=== PATIENT | male | born 1980 | race Caucasian/White ===

== ENCOUNTER 2017-08-22 08:16 | Emergency (ER) | payer MEDICAID ==
[~2017-08-22] VITALS: Ht 175.3 cm; Wt 77.1 kg
[~2017-08-22 08:16] MED LIST: PRILOSEC OTC20 MG ORAL; RANITIDINE HCL150 MG ORAL; ZOFRAN ODT4 MG ORAL
[2017-08-22 08:24] VITALS: BP 136/84
[2017-08-22] MEDS ORDERED: Lidocaine 1% Plain 30 ml INJ ONE (09:00)
[2017-08-22] MEDS ORDERED: Lidocaine 1% 10mg/ml/Epi 0.005mg/ml 30ml vial INJ ONE (09:00)
[2017-08-22] MEDS ORDERED: IBUPROFEN600 MG ORAL (09:12)
[2017-08-22] MEDS ORDERED: Norco 5mg/325mg tab ORAL ONE (09:15)
--- NOTE | 2017-08-22 09:19 | Emergency Room Report ---
History of Present Illness General Chief Complaint: General Complaint Source: Patient Present Illness HPI 37-year-old male presenting with hemorrhoid for the last 4-5 days, states it is very painful, has been using Preparation H without any relief Allergies: Coded Allergies: No Known Allergies (Unverified , 07/29/16) Patient History Past Medical History: see triage record Past Surgical History: none Pertinent Family History: none Reviewed Nursing Documentation: PMH: Agreed, PSxH: Agreed Nursing Documentation-PMH Past Medical History: No History, Except For Hx Gastrointestinal Problems: Yes - GERD. Hx hemorrhoids surgery. Review of Systems All Other Systems: negative except mentioned in HPI Physical Exam Vital Signs Date Time Temp Pulse Resp B/P (MAP) Pulse Ox O2 Delivery O2 Flow Rate FiO2 08/22/17 08:24 98.4 90 18 136/84 98 Room Air Sp02 EP Interpretation: reviewed, normal General Appearance: alert, GCS 15, mild distress Head: normocephalic, atraumatic Eyes: bilateral eye normal inspection, bilateral eye PERRL, bilateral eye EOMI ENT: normal ENT inspection, normal pharynx, normal voice, moist mucus membranes Neck: normal inspection, full range of motion, supple Respiratory: normal inspection, lungs clear, normal breath sounds, no respiratory distress, no retraction, no wheezing, speaking full sentences, chest symmetrical Cardiovascular #1: normal inspection, regular rate, rhythm, no edema, normal capillary refill Cardiovascular #2: 2+ radial (R), 2+ radial (L) Gastrointestinal: normal inspection, non tender, soft, non-distended, no guarding Rectal: other - External hemorrhoids right-sided, thrombosed,. Tender Musculoskeletal: normal inspection, back normal, normal range of motion, non- tender Neurologic: normal inspection, alert, oriented x3, responsive, motor strength/ tone normal, sensory intact, normal gait, speech normal Psychiatric: normal inspection, judgement/insight normal, memory normal Skin: normal inspection, normal color, no rash, warm/dry, well hydrated, normal turgor Procedures Incision and Drainage Incision and Drainage : Consent: Verbal Site: external hemorrhoid Blade Size: 11 I & D Procedure: betadine prep, sterile drapes applied, sterile dressing applied, gauze wick placed Wound Location: other - rectum external thrombosed hemorrhoid Wound's Depth, Shape: superficial Wound Length (cm): 2 Wound Explored: thrombosed hemorrhoids removed, elliptical incision Anesthesia: 1% Lidocaine Volume Anesthetic (ccs): 5 Patient Tolerated: Well Complications: None Medical Decision Making Diagnostic Impression: Primary Impression: Thrombosed external hemorrhoid ER Course 37-year-old male, with a thrombosed hemorrhoid DDX: Thrombosed external hemorrhoid Plan: Pain control, excision ER course: Patient feels better after excision/removal of external thrombosed hemorrhoid Disposition: Patient is to be discharged to home. Prescriptions given are Motrin Please note that this Emergency Department Report was dictated using WealthEnginedistrict service manager technology software, occasionally this can lead to erroneous entry secondary to interpretation by the dictation equipment Last Vital Signs Date Time Temp Pulse Resp B/P (MAP) Pulse Ox O2 Delivery O2 Flow Rate FiO2 08/22/17 08:24 98.4 18 136/84 98 Room Air 08/22/17 08:24 90 Disposition: HOME, SELF-CARE Condition: Improved Scripts Ibuprofen* (MOTRIN*) 600 Mg Tablet 600 MG ORAL Q8H Y for For Pain, #30 TAB 0 Refills Prov: Benjamin Schroeder M.D. 08/22/17 Patient Instructions: Hemorrhoids, [id number] Benjamin Schroeder M.D. Aug 22, 2017 09:19
[2017-08-22 09:22] VITALS: BP 136/84
== END 2017-08-22 09:23 | disposition home or self-care (01) ==
LOC: EMR 08:45
DX: K64.5 Perianal venous thrombosis (principal); K21.9 Gastro-esophageal reflux disease without esophagitis
CPT/HCPCS: 10060; 99283

== ENCOUNTER 2017-09-08 21:01 | Emergency (ER) | payer MEDICAID ==
[~2017-09-08] VITALS: Ht 175.3 cm; Wt 77.1 kg
[~2017-09-08 21:01] MED LIST changes: +IBUPROFEN600 MG ORAL
[2017-09-08] MEDS ORDERED: AMERICAINE28 G1 TP (21:33)
[2017-09-08] MEDS ORDERED: COLACE100 MG ORAL (21:33)
[2017-09-08 21:35] VITALS: BP 144/89
[2017-09-08] MEDS ORDERED: RECTIV30 GM RC (21:41)
[2017-09-08 22:00] VITALS: BP 144/89
--- NOTE | 2017-09-08 22:23 | Emergency Room Report ---
History of Present Illness General Chief Complaint: General Complaint Source: Patient Present Illness HPI 37-year-old male, with history of hemorrhoids, presenting with left-sided hemorrhoid that is very painful for 2 days. He has a history of external hemorrhoids excision. No other complaints Allergies: Coded Allergies: No Known Allergies (Unverified , 07/29/16) Patient History Past Medical History: see triage record Past Surgical History: none Pertinent Family History: none Reviewed Nursing Documentation: PMH: Agreed, PSxH: Agreed Nursing Documentation-PMH Hx Gastrointestinal Problems: Yes - GERD. Hx hemorrhoids surgery. Review of Systems All Other Systems: negative except mentioned in HPI Physical Exam Vital Signs Date Time Temp Pulse Resp B/P (MAP) Pulse Ox O2 Delivery O2 Flow Rate FiO2 09/08/17 21:19 98.8 88 16 144/89 99 Room Air Sp02 EP Interpretation: reviewed, normal General Appearance: alert, GCS 15, mild distress Head: normocephalic, atraumatic Eyes: bilateral eye normal inspection, bilateral eye PERRL, bilateral eye EOMI ENT: normal ENT inspection, normal pharynx, normal voice, moist mucus membranes Neck: normal inspection, full range of motion, supple Respiratory: normal inspection, lungs clear, normal breath sounds, no respiratory distress, no retraction, no wheezing, speaking full sentences, chest symmetrical Cardiovascular #1: normal inspection, regular rate, rhythm, no edema, normal capillary refill Cardiovascular #2: 2+ radial (R), 2+ radial (L) Gastrointestinal: normal inspection, non tender, soft, non-distended, no guarding Rectal: other - +L sided thrombosed hemorrhoid Musculoskeletal: normal inspection, back normal, normal range of motion, non- tender Neurologic: normal inspection, alert, oriented x3, responsive, motor strength/ tone normal, sensory intact, normal gait, speech normal Psychiatric: normal inspection, judgement/insight normal, memory normal Skin: normal inspection, normal color, no rash, warm/dry, well hydrated, normal turgor Procedures Additional Procedure Procedure Narrative Procedure: Left-sided thrombosed hemorrhoid removal Area cleansed with chlorhexidine 1% lidocaine used, 5cc An elliptical incision was made, thrombosed hemorrhoid was removed, patient tolerated procedure well Medical Decision Making Diagnostic Impression: Primary Impression: Thrombosed external hemorrhoid ER Course 37-year-old male with left-sided thrombosed hemorrhoid DDX: Thrombosed hemorrhoid Plan: Excision ER course: Feels better after excision Disposition: Patient is to be discharged to home. Prescriptions given are benzocaine (rectal), colace Patient is instructed to follow up with their primary care doctor within 5 days. Please note that this Emergency Department Report was dictated using Ziarcoradioisotope technologist technology software, occasionally this can lead to erroneous entry secondary to interpretation by the dictation equipment Last Vital Signs Date Time Temp Pulse Resp B/P (MAP) Pulse Ox O2 Delivery O2 Flow Rate FiO2 09/08/17 22:00 98.8 88 16 144/89 99 Room Air Disposition: HOME, SELF-CARE Condition: Improved Scripts Nitroglycerin (RECTIV) 30 Gm Oint...g. 30 GM RC BID for 7 Days, #1 TUBE 0 Refills Prov: Benjamin Schroeder M.D. 09/08/17 Docusate Sodium* (COLACE*) 100 Mg Capsule 100 MG ORAL THREE TIMES A DAY for 7 Days, #21 CAP 0 Refills Prov: Benjamin Schroeder M.D. 09/08/17 Benzocaine (AMERICAINE) 28 Gm Oint...g. 28 GM TP six times a day for 7 Days, #1 TUBE 0 Refills Prov: Benjamin Schroeder M.D. 09/08/17 Referrals: [facility],REFERRING (PCP) Patient Instructions: Surgical Procedures for Hemorrhoids, Care After Benjamin Schroeder M.D. Sep 08, 2017 22:22
== END 2017-09-08 22:00 | disposition home or self-care (01) ==
LOC: EMR 21:41
DX: K64.5 Perianal venous thrombosis (principal); K21.9 Gastro-esophageal reflux disease without esophagitis
CPT/HCPCS: 46083; 99283; Z7502

== ENCOUNTER 2017-11-27 14:59 | Emergency (ER) | payer MEDICAID ==
[~2017-11-27] VITALS: Ht 175.3 cm; Wt 81.6 kg
[~2017-11-27 14:59] MED LIST changes: +AMERICAINE28 G1 TP; +COLACE100 MG ORAL; +RECTIV30 GM RC
[2017-11-27] MEDS ORDERED: NAPROXEN500 M2 ORAL (15:09)
[2017-11-27 15:15] VITALS: BP 123/75
--- NOTE | 2017-11-27 15:30 | Emergency Room Report ---
History of Present Illness General Chief Complaint: Back Pain-No Injury Source: Patient Present Illness HPI 37 yo male patient presents to ER complaining of back pain. Reports pain radiates down right leg. Reports walks with cane. Reports MRI performed and showed herniated discs. Reports taking Naproxen for pain and topical patch medication. Reports patches fall off and do not work well. Reports "does not know cause of injury", states may have been from fall in May, denies followup with physician at that time or imaging performed. Reports imaging performed in October when pain increased. Denies recent injury. Denies fever, chest pain, SOB, rash. Denies bowel or bladder incontinence. Denies hx of surgery. Denies hx of cancer or IVDA. Denies abdominal pain. Allergies: Coded Allergies: No Known Allergies (Unverified , 07/29/16) Patient History Past Medical History: see triage record Reviewed Nursing Documentation: PMH: Agreed; PSxH: Agreed Nursing Documentation-PMH Past Medical History: No History, Except For Hx Gastrointestinal Problems: Yes - GERD. Hx hemorrhoids surgery. Review of Systems All Other Systems: negative except mentioned in HPI Physical Exam Vital Signs Date Time Temp Pulse Resp B/P (MAP) Pulse Ox O2 Delivery O2 Flow Rate FiO2 11/27/17 15:05 98.2 115 20 123/75 98 Room Air 98.2 Sp02 EP Interpretation: reviewed, normal General Appearance: well appearing, no apparent distress, alert, GCS 15, non- toxic Head: normocephalic, atraumatic Eyes: bilateral eye normal inspection, bilateral eye PERRL ENT: hearing grossly normal, normal pharynx, no angioedema, normal voice, uvula midline, moist mucus membranes Neck: full range of motion Respiratory: lungs clear, normal breath sounds, no rhonchi, no respiratory distress, no accessory muscle use, no wheezing, speaking full sentences Cardiovascular #1: regular rate, rhythm, no edema Gastrointestinal: non tender, soft, no mass, non-distended, no guarding, no rebound Musculoskeletal: back normal, digits/nails normal, normal range of motion, non- tender, no calf tenderness, pelvis stable, Sherrie's Sign negative, other - no bony stepoff, no TTP, no skin changes Neurologic: alert, oriented x3, responsive, motor strength/tone normal, sensory intact, other - SLR positive right leg, SLR negative left leg, no motor weakness Psychiatric: mood/affect normal Reflexes: 3+ knee (R), 3+ knee (L) Skin: no rash Lymphatic: no adenopathy Medical Decision Making PA Attestation Dr. King is my supervising Physician whom patient management has been discussed with. Diagnostic Impression: Primary Impression: Back pain Additional Impression: Sciatica ER Course Pt presents to ED c/o back pain. No recent injury. DDX considered but are not limited to sprain, strain, cauda equine, epidural abscess, AAA, spinal cord compression, herniated disc. Low suspicion for cauda equina, no bowel or bladder incontinence or retention, muscle strength intact, DTR knees 3+ bilaterally. No fever, nontoxic appearing, no radiation of pain, low suspicion for epidural mass. No calf swelling, chest pain, SOB, hemoptysis, low suspicion for DVT per Well's criteria. Had MRI and x-rays recently performed, no injury since that time. Does not require repeat imaging at this time. VITAL SIGNS are WNL, patient is afebrile. Pulse elevated, will recheck. Ordered pain medication. CURES report shows 2 day supply of [place] on 10/28, none since that time, Butrans patch on 11/17. Patient reports patches fall off and has not used them. ER COURSE: Will provide single Gran[place] in ER for pain relief. Patient reports no driving home , lives nearby will walk or take Uber. Patient provided with pain meds, lidocaine patch and Granville. Will not provide patient with opioid medication prescription to go home with. Patient instructed to followup with PCP or pain management for pain medication and treatment of sciatica. Patient reports feeling better following administration of pain medication. Able to ambulate independently without difficulty. Vitals WNL on recheck. DISCHARGE: -Rx provided for Tylenol -Rx provided for Lidocaine patch -Rx provided for Robaxin. May cause drowsiness, do not take when drinking, driving or operating heavy machinery. At this time pt. is stable for d/c to home. At this time patient is resting comfortably, in no acute distress, nontoxic appearing, smiling and talking without difficulty. Will provide printed patient care instructions, and any necessary prescriptions. Patient instructed to follow with primary care provider for further treatment and referral as needed. Care plan and follow up instructions have been discussed with the patient prior to discharge. Patient reports understanding and agreement to treatment plan. Patient questions asked and answered. ER precautions given, patient instructed to return to ER immediately for any new or worsening of symptoms. Last Vital Signs Date Time Temp Pulse Resp B/P (MAP) Pulse Ox O2 Delivery O2 Flow Rate FiO2 11/27/17 15:15 98.2 68 20 123/75 98 Room Air 98.2 Status: improved Disposition: HOME, SELF-CARE Condition: Stable Scripts Methocarbamol* (ROBAXIN*) 500 Mg Tablet 500 MG PO TID, #10 TAB 0 Refills Prov: Luis Choudhary 11/27/17 Acetaminophen* (TYLENOL EXTRA STRENGTH*) 500 Mg Tablet 500 MG ORAL Q8H PRN for Prn Headache/Temp > 101, #30 TAB 0 Refills Prov: Luis Choudhary 11/27/17 Lidocaine (Lidocaine) 1 Each Adh..patch 700 MG TP DAILY for 5 Days, #5 PATCH Prov: Luis Choudhary 11/27/17 Patient Instructions: Back Pain, Adult, Sciatica Additional Instructions: Followup with primary care provider in 3 -5 days to discuss pain treatment. Followup with pain management. Muscle relaxant may cause drowsiness, do not take while drinking, driving, or operating heavy machinery. Take medications as directed. Patient questions asked and answered. ER precautions given, patient instructed to return to ER immediately for any new or worsening of symptoms including but not limited to chest pain, SOB, abdominal pain, blood in stool or urine, loss of sensation of extremities. Luis Choudhary Nov 27, 2017 15:30
[2017-11-27] MEDS ORDERED: Ketorolac 30mg Inj IM ONE (16:00)
[2017-11-27] MEDS ORDERED: Norco 5mg/325mg tab ORAL ONE (16:00)
[2017-11-27] MEDS ORDERED: ROBAXIN500 MG PO (16:00)
[2017-11-27] MEDS ORDERED: LIDOCAINE700 M1 TP (16:00)
[2017-11-27] MEDS ORDERED: TYLENOL EXTRA500 MG ORAL (16:00)
[2017-11-27 16:49] VITALS: BP 123/75
== END 2017-11-27 16:30 | disposition home or self-care (01) ==
LOC: EMR 16:20
DX: M54.9 Dorsalgia, unspecified (principal); M54.31 Sciatica, right side
CPT/HCPCS: 96372; 99284; J1885

== ENCOUNTER 2018-04-12 13:37 | Emergency (ER) | payer MEDICAID ==
[~2018-04-12] VITALS: Ht 175.3 cm; Wt 72.6 kg
[~2018-04-12 13:37] MED LIST changes: +LIDOCAINE700 M1 TP; +NAPROXEN500 M2 ORAL; +ROBAXIN500 MG PO; +TYLENOL EXTRA500 MG ORAL
[2018-04-12] MEDS ORDERED: Lidocaine 1% MPF 10mg/ml 5ml IM ONE (14:15)
--- NOTE | 2018-04-12 14:15 | Emergency Room Report ---
History of Present Illness General Chief Complaint: General Complaint Source: Patient (Luis Choudhary) Present Illness HPI 38-year-old male patient presents to ER complaining of hemorrhoid 1 day. Reports that he woke up this morning and felt a palpable hemorrhoid. Reports history of hemorrhoids, [place] [facility] [place] [facility] to have hemorrhoid excised. Reports history of hemorrhoid surgery years ago. Has not followed up with primary care provider since then. Denies blood in stool. denies abdominal pain. Denies other acute symptoms at this time. Reports recent history of back surgery. (Luis Choudhary) Allergies: Coded Allergies: No Known Allergies (Unverified , 07/29/16) Patient History Past Medical History: see triage record Reviewed Nursing Documentation: PMH: Agreed; PSxH: Agreed (Luis Choudhary) Nursing Documentation-PMH Past Medical History: No History, Except For Hx Gastrointestinal Problems: Yes - GERD. Hx hemorrhoids surgery. (Luis Choudhary) Review of Systems All Other Systems: negative except mentioned in HPI (Luis Choudhary) Physical Exam Vital Signs Date Time Temp Pulse Resp B/P (MAP) Pulse Ox O2 Delivery O2 Flow Rate FiO2 04/12/18 13:50 98.3 97 18 135/91 97 Room Air 98.2 Sp02 EP Interpretation: reviewed, normal General Appearance: well appearing, no apparent distress, alert, GCS 15, non- toxic Head: normocephalic, atraumatic Eyes: bilateral eye normal inspection, bilateral eye PERRL ENT: hearing grossly normal, normal pharynx, no angioedema, normal voice, uvula midline, moist mucus membranes Neck: full range of motion Respiratory: lungs clear, normal breath sounds, no rhonchi, no respiratory distress, no accessory muscle use, no wheezing, speaking full sentences Cardiovascular #1: regular rate, rhythm, no edema Gastrointestinal: non tender, soft, no mass, non-distended, no guarding, no rebound Rectal: normal rectal tone, hemorrhoids - 1 cm thrombosed hemorrhoid at 3 o' clock position, tender to palpation, other - skin tag at 8 o'clock position Musculoskeletal: back normal, digits/nails normal, gait/station normal, normal range of motion, non-tender Neurologic: alert, oriented x3, responsive, motor strength/tone normal, sensory intact Psychiatric: mood/affect normal Skin: no rash (Luis Choudhary) Procedures Incision and Drainage Incision and Drainage : Consent: Verbal Site: rectum Blade Size: 11 I & D Procedure: betadine prep, sterile drapes applied, sterile dressing applied Wound Location: other - rectal hemorrhoid Wound Length (cm): 1 Wound Explored: contaminated - clot removed Irrigated w/ Saline (ccs): 10 Anesthesia: 1% Lidocaine Volume Anesthetic (ccs): 2 Splint Applied?: No Sling Applied?: No Patient Tolerated: Well Complications: None (Luis Choudhary) Medical Decision Making PA Attestation Dr. Ornelas is my supervising Physician whom patient management has been discussed with. (Luis Choudhary) PA Attestation I also evaluated Mr. Rodriguez alongside my colleague Denilson Choudhary PA-C. He has thrombosed hemorrhoid. I supervised and assisted with incision and excision of thrombosis. Patient tolerated the procedure well. I recommended analgesia and prescription for colace. (IRMA ORNELAS) Diagnostic Impression: Primary Impression: Thrombosed external hemorrhoid ER Course Pt. presents to the ED c/o blood on toilet paper and constipation. Ddx considered but are not limited to constipation, anal tag, anal fissure, hemorrhoids. Vital signs: are WNL, pt. is afebrile ER COURSE: physical exam shows thrombosed hemorrhoid, tender to palpation Will perform excisional procedure. See procedure note. Field block with lidocaine, small eliptical incision made, thrombosed clot removed, patient tolerated procedure well, wound dressed with gauze. procedures supervised by Dr. Ornelas. Applied gauze to affected area, advised patient on sitz baths. Wash area thoroughly following bowel movements. followup with primary care and discuss referral to GI and surgery as needed. Provide Colace for constipation. Instructed patient to drink plenty of fluids. provided with pain medication in the ER, will monitor patient, patient did not drive to ER, [place] for discharge to home. DISCHARGE: Rx provided for Colace, 200mg/day PO BID x7 days. Rx provided for Motrin At this time pt is stable for d/c to home. Patient is resting comfortably, in no acute distress, nontoxic appearing, talking without difficulty. Patient to take medications as instructed Will provide with patient care instructions and any necessary prescriptions. Care plan and follow-up instructions provided. Patient instructed to follow-up with primary care provider in 3 - 5 days. Patient questions asked and answered. Patient reports understanding and agreement to treatment plan. ER precautions given. Patient instructed to return to ER immediately for any new or worsening of symptoms including but not limited to increasing SOB, persistent fever. - Please note that this Emergency Department Report was dictated using DirectRMmultiple cut off saw operator technology software, occasionally this can lead to erroneous entry secondary to interpretation by the dictation equipment. (Luis Choudhary) Last Vital Signs Date Time Temp Pulse Resp B/P (MAP) Pulse Ox O2 Delivery O2 Flow Rate FiO2 04/12/18 13:50 98.3 97 18 135/91 97 Room Air 98.2 (Luis Choudhary) Disposition: HOME, SELF-CARE Condition: Stable Scripts Ibuprofen* (MOTRIN*) 600 Mg Tablet 600 MG ORAL Q8H PRN for For Pain, #30 TAB 0 Refills Prov: Luis Choudhary 04/12/18 Docusate Sodium* (COLACE*) 100 Mg Capsule 100 MG ORAL THREE TIMES A DAY for 7 Days, #21 CAP Prov: Luis Choudhary 04/12/18 Patient Instructions: Hemorrhoids, [id number] Additional Instructions: Followup with primary care provider in 3 -5 days. Followup with GI specialist and/or surgeon. Advised patient on Sitz baths, wash area thoroughly following bowel movements, apply gauze to area. Take medications as directed. Patient questions asked and answered. ER precautions given, patient instructed to return to ER immediately for any new or worsening of symptoms. Luis Choudhary Apr 12, 2018 14:14 IRMA ORNELAS Apr 12, 2018 14:56
[2018-04-12 14:21] VITALS: BP 135/91
[2018-04-12] MEDS ORDERED: COLACE100 MG ORAL (14:43)
[2018-04-12] MEDS ORDERED: IBUPROFEN600 MG ORAL (14:43)
[2018-04-12] MEDS ORDERED: oxyCODONE HCL/Acetaminophen 5/325mg ORAL ONE (14:45)
[2018-04-12 14:54] VITALS: BP 135/91
== END 2018-04-12 14:54 | disposition home or self-care (01) ==
LOC: EMR 14:23
DX: K64.5 Perianal venous thrombosis (principal)
CPT/HCPCS: 46083; 99283; Z7502

== ENCOUNTER 2019-01-29 11:34 | Emergency (ER) | payer MEDICAID ==
[~2019-01-29] VITALS: Ht 175.3 cm; Wt 79.4 kg
[2019-01-29 11:52] VITALS: BP 135/83
--- NOTE | 2019-01-29 11:56 | NUR ---
ED Nurse Note: pt c/o hemroidal pain since yesterday awaiting ermd eval.
[2019-01-29] MEDS ORDERED: PAXIL10 MG ORAL (11:58)
[2019-01-29] MEDS ORDERED: FAMOTIDINE20 MG ORAL (11:58)
[2019-01-29] MEDS ORDERED: Lidocaine 1% Plain 30 ml INJ ONE (12:15)
--- NOTE | 2019-01-29 12:41 | Emergency Room Report ---
History of Present Illness General Chief Complaint: Pain Source: Patient Present Illness HPI 38-year-old male with history of recurrent hemorrhoid. And chapin cysts, here complaining of 10 out of 10 throbbing pain in the buttocks area x1 day. denies bleeding, straining, constipation. Denies fever, chills, urinary and bowel incontinence. Denies saddle paresthesia, pain radiation, has not taken any medication for pain. Patient has a visit coming up with his primary care physician next week. Chest pain, S OB, palpitation, and all other associated symptoms. Allergies: Coded Allergies: No Known Allergies (Unverified , 07/29/16) Patient History Past Medical History: see triage record Past Surgical History: unable to obtain Pertinent Family History: none Immunizations: UTD Reviewed Nursing Documentation: PMH: Agreed; PSxH: Agreed Nursing Documentation-PMH Hx Gastrointestinal Problems: Yes - GERD. Hx hemorrhoids surgery. Review of Systems All Other Systems: negative except mentioned in HPI Physical Exam Vital Signs Date Time Temp Pulse Resp B/P (MAP) Pulse Ox O2 Delivery O2 Flow Rate FiO2 01/29/19 11:44 99.7 106 20 135/83 (100) 99 Room Air Sp02 EP Interpretation: reviewed, normal General Appearance: normal inspection, well appearing, no apparent distress Head: normocephalic, atraumatic Eyes: bilateral eye normal inspection, bilateral eye PERRL ENT: normal ENT inspection, hearing grossly normal Neck: normal inspection, full range of motion, supple Respiratory: normal inspection, chest non-tender, lungs clear Cardiovascular #1: normal inspection, normal peripheral pulses, regular rate, rhythm, no edema Gastrointestinal: normal inspection, non tender, soft Rectal: hemorrhoids - thrombosed hemorrohid, mass - chapin cyst, tenderness Genitourinary: no CVA tenderness Musculoskeletal: normal inspection, back normal, digits/nails normal, gait/ station normal Neurologic: normal inspection, alert, oriented x3 Psychiatric: normal inspection, judgement/insight normal Skin: normal color, no rash, warm/dry, rash - chapin cyst Lymphatic: normal inspection, no adenopathy Procedures Incision and Drainage Incision and Drainage : Consent: Verbal Blade Size: 11 I & D Procedure: betadine prep Wound Location: pelvis Wound's Depth, Shape: superficial Wound Explored: clean Anesthesia: 1% Lidocaine Volume Anesthetic (ccs): 10 Splint Applied?: Yes Sling Applied?: No Patient Tolerated: Well Complications: None Medical Decision Making PA Attestation All my diagnosis and treatment plans were reviewed ad discussed with my supervising physician Dr. Carnes Diagnostic Impression: Primary Impression: Pilonidal cyst with abscess Additional Impression: Thrombosed external hemorrhoid ER Course 38-year-old male with history of recurrent hemorrhoid. And chapin cysts, here complaining of 10 out of 10 throbbing pain in the buttocks area x1 day. denies bleeding, straining, constipation. Denies fever, chills, urinary and bowel incontinence. Denies saddle paresthesia, pain radiation, has not taken any medication for pain. Patient has a visit coming up with his primary care physician next week. Chest pain, S OB, palpitation, and all other associated symptoms. Incision and drainage of abscess was done without complications, lidocaine was applied for numbing, patient was put on antibiotics upon discharge and nonadhesive dressing was applied, pt advised to follow up with pcp or go to urgent care for wound check in 2-4days. if fever, chills, severe pain at site of I and D, return to the ER Ddx considered but are not limited to: chapin cyst, thrombosed hemorrohid, rectal fistula, Vital signs: are WNL, pt. is afebrile H&PE are most consistent with: chapin cyst, thrombosed hemorrohid ORDERS: toradol 30mg, lidocaine, keflex, naproxen ED INTERVENTIONS: toradol 30mg IM, I and D , tylenol 3 DISCHARGE: At this time pt. is stable for d/c to home. Will provide printed patient care instructions, and any necessary prescriptions. Care plan and follow up instructions have been discussed with the patient prior to discharge. Last Vital Signs Date Time Temp Pulse Resp B/P (MAP) Pulse Ox O2 Delivery O2 Flow Rate FiO2 01/29/19 11:52 99.7 20 135/83 99 Room Air 01/29/19 11:44 106 Disposition: HOME, SELF-CARE Condition: Stable Scripts Naproxen* (NAPROXEN*) 500 Mg Tablet 500 MG ORAL TWICE A DAY, #30 TAB Prov: Seven Hernandez 01/29/19 Cephalexin* (KEFLEX*) 500 Mg Capsule 500 MG ORAL EVERY 6 HOURS for 7 Days, #28 CAP Prov: Seven Hernandez 01/29/19 Patient Instructions: Hemorrhoids, [id number], Incision and Drainage of a Pilonidal Cyst, Care After Additional Instructions: follow up with The primary care physician for follow-up and 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
[2019-01-29] MEDS ORDERED: Ketorolac 30mg Inj IM ONE (12:45)
[2019-01-29] MEDS ORDERED: NAPROXEN500 M2 ORAL (13:13)
[2019-01-29] MEDS ORDERED: CEPHALEXIN500 MG ORAL (13:13)
[2019-01-29] MEDS ORDERED: Tylenol #3 tab (300mg/30mg) ORAL ONE (13:15)
[2019-01-29 13:44] VITALS: BP 137/85
--- NOTE | 2019-01-29 13:47 | NUR ---
ED Nurse Note: i&D done by PA . Irrigation and dressing done pt given aci and script verbalized understanding ambulated out of er with strong and steady gait.
== END 2019-01-29 13:48 | disposition home or self-care (01) ==
LOC: EMR 12:11
DX: L05.01 Pilonidal cyst with abscess (principal); K64.5 Perianal venous thrombosis; K21.9 Gastro-esophageal reflux disease without esophagitis
CPT/HCPCS: 10060; 96372; 99283; J1885; J2001

== ENCOUNTER 2019-02-01 15:45 | Emergency (ER) | payer MEDICAID ==
[~2019-02-01] VITALS: Ht 175.3 cm; Wt 79.4 kg
[~2019-02-01 15:45] MED LIST changes: +CEPHALEXIN500 MG ORAL; +FAMOTIDINE20 MG ORAL; +PAXIL10 MG ORAL
--- NOTE | 2019-02-01 16:05 | NUR ---
ED Nurse Note: PT WALKED IN TO ER TODAY FROM HOME. AOX4. PT C/O RECTAL PAIN, 8/10, BLEEDING, AND DIARRHEA X 3 DAYS AGO. PT IS S/P I&D OF PILONIDAL CYST. ON ASSESSMENT, NO ACTIVE BLEEDING NOTED. NO SIGNS OF INFECTION. ACTIVE BOWEL SOUNDS IN ALL QUADRANTS. ABDOMEN NONDISTENDED AND NONTENDER TO PALPATION. PT DENIES NAUSEA OR VOMITING. PT DENIES ABDOMINAL PAIN.
[2019-02-01 16:08] VITALS: BP 142/82
[2019-02-01] MEDS ORDERED: Ketorolac 30mg Inj IV ONE (16:15)
--- NOTE | 2019-02-01 16:45 | Emergency Room Report ---
History of Present Illness General Chief Complaint: Pain Source: Patient Present Illness HPI 38-year-old male with history of recurrent hemorrhoids here following up on a thrombosed hemorrhoid that was drained and a pile of cyst was drained 3 days ago at [facility]. Patient was discharged with Keflex and naproxen patient reports that he started having increased diarrhea after he started Keflex. Also complaining of minimal pain in the buttocks area. Eyes fever, chills, drainage, blood in his stool. Patient has not made an appointment with his primary care provider. Pain, S OB, palpitation, nausea vomiting, abdominal pain. She is currently rating the pain in the affected area 5 out of 10, without radiation denying tingling numbness, denying saddle paresthesia Allergies: Coded Allergies: No Known Allergies (Unverified , 07/29/16) Patient History Past Medical History: see triage record Past Surgical History: unable to obtain Pertinent Family History: none Immunizations: UTD Reviewed Nursing Documentation: PMH: Agreed; PSxH: Agreed Nursing Documentation-PMH Past Medical History: No History, Except For Hx Gastrointestinal Problems: Yes - GERD. Hx hemorrhoids surgery. Review of Systems All Other Systems: negative except mentioned in HPI Physical Exam Vital Signs Date Time Temp Pulse Resp B/P (MAP) Pulse Ox O2 Delivery O2 Flow Rate FiO2 02/01/19 15:51 99.0 100 20 145/87 (106) 99 Room Air Sp02 EP Interpretation: reviewed, normal General Appearance: normal inspection, well appearing Head: normocephalic, atraumatic Eyes: bilateral eye normal inspection, bilateral eye PERRL ENT: normal ENT inspection, no angioedema Neck: normal inspection, full range of motion, supple Respiratory: normal inspection, chest non-tender, lungs clear, no wheezing Cardiovascular #1: normal inspection, normal peripheral pulses, no edema, no murmur Gastrointestinal: normal inspection, non tender, soft Rectal: other - drained and healing thrombosed hemorrhoid Genitourinary: no CVA tenderness Musculoskeletal: normal inspection, back normal Neurologic: normal inspection, alert Psychiatric: normal inspection, judgement/insight normal Skin: normal inspection Lymphatic: normal inspection, no adenopathy Medical Decision Making PA Attestation All my diagnosis and treatment plans were reviewed ad discussed with my supervising physician Dr. Munoz Diagnostic Impression: Primary Impression: Thrombosed external hemorrhoid Additional Impressions: Encounter for wound care Acute diarrhea ER Course 38-year-old male with history of recurrent hemorrhoids here following up on a thrombosed hemorrhoid that was drained and a pile of cyst was drained 3 days ago at [facility]. Patient was discharged with Keflex and naproxen patient reports that he started having increased diarrhea after he started Keflex. Also complaining of minimal pain in the buttocks area. Eyes fever, chills, drainage, blood in his stool. Patient has not made an appointment with his primary care provider. Pain, S OB, palpitation, nausea vomiting, abdominal pain. She is currently rating the pain in the affected area 5 out of 10, without radiation denying tingling numbness, denying saddle paresthesia Ddx considered but are not limited to:bleeding hemorrhoid, infected cyst, diarrhea secondary to antibiotic, healing thrombosed hemorrhoid Vital signs: are WNL, pt. is afebrile H&PE are most consistent with: Healing thrombosed hemorrhoid post drainage, diarrhea secondary to antibiotics ORDERS: Toradol 30 mg IM, 500 mL of NS bolus, Bactrim DS instead of Keflex, Tylenol 3 ED INTERVENTIONS: Toradol 30 mg IM, 500 mL of NS bolus DISCHARGE: At this time pt. is stable for d/c to home. Will provide printed patient care instructions, and any necessary prescriptions. Care plan and follow up instructions have been discussed with the patient prior to discharge. Follow-up with garden labourer due to recurrences of hemorrhoid continue with naproxen cures was done and a prescription of hydrocodone was given 5 days ago Last Vital Signs Date Time Temp Pulse Resp B/P (MAP) Pulse Ox O2 Delivery O2 Flow Rate FiO2 02/01/19 16:08 98.8 94 18 142/82 100 Room Air Disposition: HOME, SELF-CARE Condition: Stable Scripts Acetaminophen With Codeine (T#3) (TYLENOL #3 TAB*) Y Tab 1 TAB ORAL DAILY PRN for For Pain for 3 Days, #3 TAB Prov: Seven Hernandez 02/01/19 Loperamide Hcl/Simethicone (IMODIUM MULTI-SYMPTOM REL CPLT) 1 Each Tablet 1 EACH PO DAILY for 3 Days, #3 TAB Prov: Seven Hernandez 6/4/19 Trimethoprim/Sulfamethoxazole (Bactrim Ds Tablet) 1 Each Tablet 1 TAB ORAL TWICE A DAY for 7 Days, #14 TAB Prov: Seven Hernandez 02/01/19 Patient Instructions: Food Choices to Help Relieve Diarrhea, Adult, Hemorrhoids , [id number], Wound Care Additional Instructions: Follow-up with your primary care provider for referral to garden labourer due to your recurrent hemorrhoid the drainage has completed and the wound is healing no sign of erythema or cellulitis noted I change your antibiotic due to your increased diarrhea secondary to Keflex Seven Hernandez Feb 01, 2019 16:45
[2019-02-01] MEDS ORDERED: IMODIUM MULTI-1 EACH PO (16:52)
[2019-02-01] MEDS ORDERED: ACETAMINOPHEN-1 EAC1 ORAL (16:52)
[2019-02-01] MEDS ORDERED: BACTRIM-DS1 EA ORAL (16:52)
--- NOTE | 2019-02-01 16:56 | NUR ---
ED Nurse Note: PT LAYING PEACEFULLY IN BED IN NAD. AOX4. DISCHARGE PAPERWORK EXPLAINED TO PT. PT VERBALIZES UNDERSTANDING AND ALL QUESTIONS ANSWERED. DISCHARGE PAPERWORK GIVEN TO PT, IV AND ID WRISTBAND REMOVED. PT WALKED OUT OF ER WITH STEADY GAIT AND ALL BELONGINGS.
[2019-02-01 16:57] VITALS: BP 134/78
== END 2019-02-01 17:00 | disposition home or self-care (01) ==
LOC: EMR 17:00
DX: K64.5 Perianal venous thrombosis (principal); R19.7 Diarrhea, unspecified; K21.9 Gastro-esophageal reflux disease without esophagitis
CPT/HCPCS: 96374; 99284; J1885; J7040

== ENCOUNTER 2019-04-12 18:57 | Emergency (ER) | payer MEDICAID ==
[~2019-04-12] VITALS: Ht 175.3 cm; Wt 77.1 kg
[~2019-04-12 18:57] MED LIST changes: +ACETAMINOPHEN-1 EAC1 ORAL; +BACTRIM-DS1 EA ORAL; +IMODIUM MULTI-1 EACH PO
--- NOTE | 2019-04-12 19:15 | NUR ---
ED Nurse Note: Recieved pt from home with c/o "spider bite" to back of right forearm, small yellow scab wound noted with redness and mild swelling, pt states is very painful to touch, noted x 2 days, denies fevers, vomiting, or any other complaints or discomforts.
[2019-04-12] MEDS ORDERED: Neosporin Oint Ud Pkt TOPIC ONE (19:45)
[2019-04-12] MEDS ORDERED: HYDROcodone/Acetamin 5/325 tab ORAL ONE (19:45)
--- NOTE | 2019-04-12 19:52 | Emergency Room Report ---
History of Present Illness General Chief Complaint: Upper Extremity Injury Present Illness HPI 39 YO presents to the emergency department complaining of localized 7/10 in severity pain, tenderness, swelling , erythema and insect bite to the posterior right forearm that is been progressive x2 days. Patient states he is up-to- date with his tetanus vaccinations. Patient reports that he felt initial insect bite and he stated he had what looked like a small blister that was very itchy for the first day and half. Patient reports that the blister later popped and he began having scabbing but he states that he has had progression of pain and tenderness as well as swelling of the right forearm. Pt. denies fevers, chills or swollen tender lymph nodes. Denies lesions/rashes elsewhere on the body. Denies new medications or body washes or creams. Denies swelling of the lips, tongue , throat or airway. Denies wheezing, or shortness of breath. Denies recent travel, recent illness or ill contacts. denies blisters , oral lesions, or sloughing of the skin Allergies: Coded Allergies: No Known Allergies (Unverified , 07/29/16) Patient History Past Medical History: see triage record Past Surgical History: none Pertinent Family History: none Immunizations: UTD Reviewed Nursing Documentation: PMH: Agreed; PSxH: Agreed Nursing Documentation-PMH Hx Gastrointestinal Problems: Yes - GERD. Hx hemorrhoids surgery. Review of Systems All Other Systems: negative except mentioned in HPI Physical Exam Vital Signs Date Time Temp Pulse Resp B/P (MAP) Pulse Ox O2 Delivery O2 Flow Rate FiO2 04/12/19 19:03 99.0 79 18 136/78 (97) 96 Room Air Sp02 EP Interpretation: reviewed, normal General Appearance: no apparent distress, alert, GCS 15, non-toxic Head: normocephalic, atraumatic Eyes: bilateral eye normal inspection, bilateral eye PERRL ENT: hearing grossly normal, normal voice Neck: full range of motion Respiratory: chest non-tender, lungs clear, normal breath sounds, no wheezing, speaking full sentences Cardiovascular #1: regular rate, rhythm, normal capillary refill Cardiovascular #2: 2+ radial (R), 2+ radial (L) Musculoskeletal: gait/station normal, normal range of motion, non-tender Neurologic: alert, oriented x3, responsive, motor strength/tone normal, sensory intact, speech normal, grossly normal Psychiatric: judgement/insight normal Skin: other - ent with infected insect bite of the right forearm approximately 0.5 cm in diameter lesion with 2 cm of surrounding erythema there is a purulent colored scab no blisters or vesicles. Sloughing of the skin Lymphatic: no adenopathy Medical Decision Making PA Attestation Dr. Schroeder is my supervising Physician whom patient management has been discussed with. Diagnostic Impression: Primary Impression: Insect bite, infected Qualified Codes: W57.XXXA - Bitten or stung by nonvenomous insect and other nonvenomous arthropods, initial encounter ER Course 39 YO presents to the emergency department complaining of localized 7/10 in severity pain, tenderness, swelling , erythema and insect bite to the posterior right forearm that is been progressive x2 days. Patient states he is up-to- date with his tetanus vaccinations. Patient reports that he felt initial insect bite and he stated he had what looked like a small blister that was very itchy for the first day and half. Patient reports that the blister later popped and he began having scabbing but he states that he has had progression of pain and tenderness as well as swelling of the right forearm. Pt. denies fevers, chills or swollen tender lymph nodes. Denies lesions/rashes elsewhere on the body. Denies new medications or body washes or creams. Denies swelling of the lips, tongue , throat or airway. Denies wheezing, or shortness of breath. Denies recent travel, recent illness or ill contacts. denies blisters , oral lesions, or sloughing of the skin Ddx considered but are not limited to cellulitis, scabies, insect bites, tic bites, spider bites, contact dermatitis, Drug reaction, allergic reaction, fungal infection, lice. Vital signs: are WNL, pt. is afebrile H&PE are most consistent with infected insect bite of the right forearm approximately 0.5 cm in diameter lesion with 2 cm of surrounding erythema there is a purulent colored scab no blisters or vesicles. Sloughing of the skin. No evidence of acute impending airway compromise or anaphylaxis. Patient is nontoxic in appearance, otherwise in no acute distress. ORDERS: none required at this time, the diagnosis is clinical ED INTERVENTIONS: -Bacitracin and sterile dressing -I do not identify an emergent condition at this time. With current presentation , pt. is stable for close outpatient follow up and conservative treatment. D/ w pt. to return promptly to ED with worsening or new symptoms.- Pt. verbalizes' understanding and agreement with proposed treatment plan. DISCHARGE: At this time pt. is stable for d/c to home. Will provide printed patient care instructions, and any necessary prescriptions. Care plan and follow up instructions have been discussed with the patient prior to discharge. Last Vital Signs Date Time Temp Pulse Resp B/P (MAP) Pulse Ox O2 Delivery O2 Flow Rate FiO2 04/12/19 19:03 99.0 79 18 136/78 (97) 96 Room Air Status: improved Disposition: HOME, SELF-CARE Condition: Stable Scripts Mupirocin* (MUPIROCIN*) 22 Gm Oint...g. 1 APPLIC TOPIC THREE TIMES A DAY, #22 GM Prov: Mulu Ngo 04/12/19 Clindamycin Hcl (CLINDAMYCIN HCL) 300 Mg Capsule 300 MG ORAL FOUR TIMES A DAY for 7 Days, #28 CAP Prov: Mulu Ngo 04/12/19 Referrals: [facility],REFERRING (PCP) Departure Forms: Return to Work Return to Work Date: Apr 15, 2019 Work Restrictions: No Heavy Lifting Return to Full Activity: Apr 15, 2019 Patient Instructions: Cellulitis, [id number], Insect Bite, [id number] Additional Instructions: Take medications as directed. Follow up with a Primary Care Provider in 3-5 days, even if your symptoms have resolved. --Please review list of primary care clinics, if you do not already have a primary care provider Return sooner to ED if new symptoms occur, or current symptoms become worse. - Please note that this Emergency Department Report was dictated using [employer] buffer technology software, occasionally this can lead to erroneous entry secondary to interpretation by the dictation equipment. Mulu Ngo Apr 12, 2019 19:52
[2019-04-12] MEDS ORDERED: CLINDAMYCIN HC300 MG ORAL (20:15)
[2019-04-12] MEDS ORDERED: MUPIROCIN22 GM TOPIC (20:15)
--- NOTE | 2019-04-12 20:25 | NUR ---
ER DISCHARGE NOTE: Patient is cleared to be discharged per ERMD, pt is aox4, on room air, with stable vital signs. pt was given dc and prescription instructions, pt was able to verbalize understanding, pt id band removed without complications. pt is able to ambulate with steady gait. pt took all belongings. pt wound cleaned and neosporin ointment applied.
[2019-04-12 20:30] VITALS: BP 131/69
[2019-04-12 20:35] VITALS: BP 131/69
== END 2019-04-12 20:35 | disposition home or self-care (01) ==
LOC: EMR 19:30
DX: S40.861A Insect bite (nonvenomous) of right upper arm, initial encounter (principal); W57.XXXA Bitten or stung by nonvenomous insect and other nonvenomous arthropods, initial encounter; K21.9 Gastro-esophageal reflux disease without esophagitis
CPT/HCPCS: 99282

== ENCOUNTER 2019-05-22 10:21 | Emergency (ER) | payer MEDICAID ==
[~2019-05-22] VITALS: Ht 175.3 cm; Wt 77.1 kg
[~2019-05-22 10:21] MED LIST changes: +CLINDAMYCIN HC300 MG ORAL; +MUPIROCIN22 GM TOPIC
[2019-05-22 10:37] VITALS: BP 131/94
--- NOTE | 2019-05-22 10:40 | NUR ---
ED Nurse Note: Patient walked in to ER from home due to alcohol withdraw symptoms including abdominal pain, N/V since last night. pt aao x4 and ambulatory. skin clean and intact. cooperative but irritable and restless due to alcohol withdraw symptoms. 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 both siderails up to prevent fall and pt agreed. per pt, he had wiskey on Thursday night and the symptoms started last night. pt reported he could not sleep at all last night.
[2019-05-22 11:00] LABS: APPEARANCE,URINE CLEAR; BASOPHILS % (AUTO) 0.5 % (0.0-2.0); BILIRUBIN, URINE 1+ (NEGATIVE); EOSINOPHILS % (AUTO) 0.1 % (0.0-3.0); GLUCOSE, URINE (UA) NEGATIVE (NEGATIVE); HEMATOCRIT 54.4 % (42.0-52.0); KETONES,URINE 4+ (NEGATIVE); LEUKOCYTE ESTERASE ,URINE 1+ (NEGATIVE); LYMPHOCYTES % (AUTO) 10.6 % (20.0-45.0); MEAN CORPUSCULAR VOLUME 98 FL (80-99); MONOCYTES % (AUTO) 8.3 % (1.0-10.0); NEUTROPHILS % (AUTO) 80.5 % (45.0-75.0); NITRITE,URINE NEGATIVE (NEGATIVE); PH,URINE 8 (4.5-8.0); PLATELET COUNT 208 K/UL (150-450); PROTEIN,URINE 3+ (NEGATIVE); RED BLOOD COUNT 5.54 M/UL (4.70-6.10); RED CELL DISTRIBUTION WIDTH 10.9 % (11.6-14.8); UROBILINOGEN,URINE 8 MG/DL (0.0-1.0); WHITE BLOOD COUNT 11.7 K/UL (4.8-10.8)
[2019-05-22] MEDS ORDERED: Lidocaine 2% Visc 15ml soln ORAL ONE (11:00)
[2019-05-22] MEDS ORDERED: Mylanta II UD 30ml ORAL ONE (11:00)
[2019-05-22] MEDS ORDERED: Dicyclomine HCl 10mg/5ml oral soln ORAL ONE (11:00)
[2019-05-22 11:03] LABS: HEMOGLOBIN 18.7 G/DL (14.2-18.0)
--- NOTE | 2019-05-22 11:05 | Emergency Room Report ---
History of Present Illness General Chief Complaint: Vomiting Source: Patient Present Illness HPI Disclaimer: Please note that this report is being documented using DRAGON technology. This can lead to erroneous entry secondary to incorrect interpretation by the dictating instrument. HPI: 39-year-old male with history of alcohol abuse presents for evaluation of abdominal pain and vomiting. Patient states he has been in remission from alcohol abuse for some time however he relapsed several weeks ago. He has been drinking copious amounts of vodka daily and stop drinking 2 nights ago. He notes diffuse abdominal cramping as well as cramping in his arms and legs, tremors, palpitations, persistent vomiting and dry heaving. Denies any hematemesis. Denies melena, dysuria, hematuria. Denies trauma or head injury. No prior history of pancreatitis, withdrawal seizures or DTs. PMH: [] PSH: [] Allergies: [] Social Hx: [] Allergies: Coded Allergies: No Known Allergies (Unverified , 07/29/16) Nursing Documentation-PMH Past Medical History: No History, Except For Hx Gastrointestinal Problems: Yes - GERD. Hx hemorrhoids surgery. Review of Systems All Other Systems: negative except mentioned in HPI Physical Exam Vital Signs Date Time Temp Pulse Resp B/P (MAP) Pulse Ox O2 Delivery O2 Flow Rate FiO2 05/22/19 10:27 98.6 116 20 151/95 (113) 94 Room Air General: Awake and alert, no acute distress HEENT: NC/AT. EOMI. dry mucous membranes Cardiovascular: Arrived tachycardic though heart rate is now normalized in the high 80s. S1 and S2 normal. No murmur appreciated Resp: Normal work of breathing. No cough, wheezing or crackles appreciated Abdomen: Abdomen is soft, nondistended. Nontender Skin: Intact. No abrasions, laceration or rash over the exposed skin MSK: Normal tone and bulk. Moving all extremities. No obvious deformity. Neuro: Awake and alert. Mentating appropriately. No tremors, appears anxious but cooperative and calm during exam Medical Decision Making Diagnostic Impression: Primary Impression: Alcoholic gastritis Additional Impressions: Hypokalemia Vomiting ER Course 39-year-old male presents for evaluation of abdominal cramping, vomiting in the setting of recent alcohol abuse. Differential includes but is not limited to alcohol withdrawal, gastritis, gastroenteritis, UTI, pyelonephritis, electrolyte abnormality. Will check labs, start IV fluids, antiemetics and antacids. Patient's heart rate is normalized, no indication of acute withdrawal at this time though he is complaining of severe anxiety. We will give him some oral anxiolytics. Laboratory Tests Test 05/22/19 10:40 White Blood Count 11.7 K/UL (4.8-10.8) H Red Blood Count 5.54 M/UL (4.70-6.10) Hemoglobin 18.7 G/DL (14.2-18.0) *H Hematocrit 54.4 % (42.0-52.0) H Mean Corpuscular Volume 98 FL (80-99) Mean Corpuscular Hemoglobin 33.7 PG (27.0-31.0) H Mean Corpuscular Hemoglobin Concent 34.3 G/DL (32.0-36.0) Red Cell Distribution Width 10.9 % (11.6-14.8) L Platelet Count 208 K/UL (150-450) Mean Platelet Volume 6.3 FL (6.5-10.1) L Neutrophils (%) (Auto) 80.5 % (45.0-75.0) H Lymphocytes (%) (Auto) 10.6 % (20.0-45.0) L Monocytes (%) (Auto) 8.3 % (1.0-10.0) Eosinophils (%) (Auto) 0.1 % (0.0-3.0) Basophils (%) (Auto) 0.5 % (0.0-2.0) Urine Color Yellow Urine Appearance Clear Urine pH 8 (4.5-8.0) Urine Specific Mongo 1.010 (1.005-1.035) Urine Protein 3+ (NEGATIVE) H Urine Glucose (UA) Negative (NEGATIVE) Urine Ketones 4+ (NEGATIVE) H Urine Blood Negative (NEGATIVE) Urine Nitrite Negative (NEGATIVE) Urine Bilirubin 1+ (NEGATIVE) H Urine Ictotest Negative (NEGATIVE) Urine Urobilinogen 8 MG/DL (0.0-1.0) H Urine Leukocyte Esterase 1+ (NEGATIVE) H Urine RBC 0-2 /HPF (0 - 0) H Urine WBC 2-4 /HPF (0 - 0) Urine Squamous Epithelial Cells Occasional /LPF Urine Bacteria Occasional /HPF (NONE) Urine Mucus Moderate /LPF (NONE/OCC) H Sodium Level 135 MMOL/L (136-145) L Potassium Level 2.9 MMOL/L (3.5-5.1) L Chloride Level 87 MMOL/L (98-107) L Carbon Dioxide Level 27 MMOL/L (21-32) Anion Gap 22 mmol/L (5-15) H Blood Urea Nitrogen 13 mg/dL (7-18) Creatinine 1.0 MG/DL (0.55-1.30) Estimate Glomerular Filtration Rate > 60 mL/min (>60) Glucose Level 112 MG/DL (74-106) H Calcium Level 10.0 MG/DL (8.5-10.1) Phosphorus Level 2.6 MG/DL (2.5-4.9) Magnesium Level 1.2 MG/DL (1.8-2.4) L Total Bilirubin 2.1 MG/DL (0.2-1.0) H Direct Bilirubin 0.4 MG/DL (0.0-0.3) H Aspartate Amino Transferase (AST) 47 U/L (15-37) H Alanine Aminotransferase (ALT) 53 U/L (12-78) Alkaline Phosphatase 148 U/L (46-116) H Total Protein 8.7 G/DL (6.4-8.2) H Albumin 4.5 G/DL (3.4-5.0) Globulin 4.2 g/dL Albumin/Globulin Ratio 1.1 (1.0-2.7) Lipase 86 U/L (73-393) Reevaluation Time: 12:59 Last Vital Signs Date Time Temp Pulse Resp B/P (MAP) Pulse Ox O2 Delivery O2 Flow Rate FiO2 05/22/19 10:37 98.6 107 17 131/94 98 Room Air Status: improved Reevaluation Impression Labs have shown evidence of dehydration with hemoconcentration. The patient is received 2 L IV fluids and is feeling better. He is much improved after receiving a small dose of Ativan. He is complaining of persistent internal restlessness and agitation but no outward signs of withdrawal, heart rate is stable, no longer vomiting. He will be started on Zofran, potassium replacement for hypokalemia, vitamin supplements and Vistaril for his anxiety/ restlessness. We will start a PPI as well for gastritis. He will follow-up with his PMD. Discussed reasons to return to the emergency department. He understands and agrees with this treatment plan. Scripts Hydroxyzine Hcl (HYDROXYZINE HCL) 50 Mg Tablet 50 MG PO TID for 5 Days, #20 TAB Prov: Tadeo Ivy MD 05/22/19 Potassium Chloride* (K-DUR*) 20 Meq Tab.er.prt 20 MEQ ORAL DAILY, #5 TAB 0 Refills Prov: Tadeo Ivy MD 05/22/19 Folic Acid* (FOLIC ACID*) 1 Mg Tablet 1 MG ORAL DAILY for 30 Days, #30 TAB Prov: Tadeo Ivy MD 05/22/19 Thiamine Hcl* (VITAMIN B-1*) 100 Mg Tablet 100 MG ORAL DAILY, #30 TAB 0 Refills Prov: Tadeo Ivy MD 05/22/19 Omeprazole (OMEPRAZOLE) 20 Mg Capsule.dr 20 MG ORAL DAILY for 14 Days, #14 CAP Prov: Tadeo Ivy MD 05/22/19 Ondansetron Odt* (ZOFRAN ODT*) 4 Mg Tab.rapdis 4 MG BC EVERY 6 HOURS PRN for Nausea & Vomiting, #20 TAB 0 Refills Prov: Tadeo Ivy MD 05/22/19 Referrals: NON PHYSICIAN (PCP) Tadeo Ivy MD May 22, 2019 11:05
[2019-05-22 11:07] LABS: COLOR,URINE YELLOW
[2019-05-22 11:08] LABS: ANION GAP 22 mmol/L (5-15); BLOOD UREA NITROGEN 13 mg/dL (7-18); CARBON DIOXIDE 27 MMOL/L (21-32); CHLORIDE 87 MMOL/L (98-107); POTASSIUM 2.9 MMOL/L (3.5-5.1); SODIUM 135 MMOL/L (136-145)
[2019-05-22 11:25] LABS: ALANINE AMINOTRANSFERASE 53 U/L (12-78); ALBUMIN 4.5 G/DL (3.4-5.0); ALBUMIN/GLOBULIN RATIO 1.1 (1.0-2.7); ALKALINE PHOSPHATASE 148 U/L (46-116); ASPARTATE AMINO TRANSFERASE 47 U/L (15-37); BILIRUBIN,TOTAL 2.1 MG/DL (0.2-1.0); PHOSPHORUS 2.6 MG/DL (2.5-4.9)
[2019-05-22 11:26] LABS: BILIRUBIN,DIRECT 0.4 MG/DL (0.0-0.3)
[2019-05-22] MEDS ORDERED: ONDANSETRON ODT4 MG BC (12:47)
[2019-05-22] MEDS ORDERED: POTASSIUM CHLO20 ME1 ORAL (12:47)
[2019-05-22] MEDS ORDERED: FOLIC ACID1 MG ORAL (12:47)
[2019-05-22] MEDS ORDERED: VITAMIN B-1100 MG ORAL (12:47)
[2019-05-22] MEDS ORDERED: OMEPRAZOLE20 M2 ORAL (12:47)
--- NOTE | 2019-05-22 12:52 | NUR ---
ED Nurse Note: ERMD at bedside discussing discharge plan with pt.
[2019-05-22] MEDS ORDERED: HYDROXYZINE HCL50 M1 PO (12:58)
[2019-05-22 13:30] VITALS: BP 105/87
[2019-05-22] MEDS ORDERED: HydrOXYzine tab 25mg tab ORAL ONE (13:30)
--- NOTE | 2019-05-22 13:30 | NUR ---
ED Nurse Note: Pt cleared by health care Provider for discharge. DC instructions/prescription was given and explained to pt and verbalized understanding of teachings. All medical deviecs such as ID band removed. Pt is AAO x4, ambulatory and left with all personal belongings.
== END 2019-05-22 13:30 | disposition home or self-care (01) ==
LOC: EMR 10:50
DX: K29.20 Alcoholic gastritis without bleeding (principal); R11.10 Vomiting, unspecified; E87.6 Hypokalemia; K21.9 Gastro-esophageal reflux disease without esophagitis; E86.0 Dehydration
CPT/HCPCS: 36415; 80053; 81003; 82248; 83690; 83735; 84100; 85025; 96361; 96374; J2405; Z7502; 99284

== ENCOUNTER 2019-09-16 14:07 | Emergency (ER) | payer SELFPAY ==
[~2019-09-16] VITALS: Ht 175.3 cm; Wt 72.6 kg
[~2019-09-16 14:07] MED LIST changes: +FOLIC ACID1 MG ORAL; +HYDROXYZINE HCL50 M1 PO; +OMEPRAZOLE20 M2 ORAL; +ONDANSETRON ODT4 MG BC; +POTASSIUM CHLO20 ME1 ORAL; +VITAMIN B-1100 MG ORAL
[2019-09-16 14:22] VITALS: BP 132/89
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
[2019-09-16] MEDS ORDERED: Dexamethasone 4mg/ml vial IVP ONE (15:00)
[2019-09-16] MEDS ORDERED: Methocarbamol 750mg tab ORAL ONE (15:00)
[2019-09-16] MEDS ORDERED: Ketorolac 30mg Inj IM ONE (15:00)
--- NOTE | 2019-09-16 15:30 | Emergency Room Report ---
History of Present Illness General Chief Complaint: Neck Pain Source: Patient Present Illness HPI 39-year-old male with no segment past medical history here complaining of right- sided neck pain radiating to right shoulder x1 month. Patient reports that 1 month ago he fell and hit his right side of face and neck however did not seek any imaging. Now complains of tingling sensation starting neck pain rating all the way to the arm. Rating pain 10 out of 10. Reports has been taking over-the -counter ibuprofen with minimal relief. Has difficulty with range of motion. Denies fever and chills, headache and dizziness at this time. No signs of meningismus is noted. Denies chest pain, shortness of breath, palpitation, headache and dizziness no other associated symptoms. Allergies: Coded Allergies: No Known Allergies (Unverified , 07/29/16) Patient History Past Medical History: see triage record Past Surgical History: unable to obtain Pertinent Family History: none Immunizations: UTD Reviewed Nursing Documentation: PMH: Agreed; PSxH: Agreed Nursing Documentation-PMH Past Medical History: No History, Except For Hx Gastrointestinal Problems: Yes - GERD. Hx hemorrhoids surgery. Review of Systems All Other Systems: negative except mentioned in HPI Physical Exam Vital Signs Date Time Temp Pulse Resp B/P (MAP) Pulse Ox O2 Delivery O2 Flow Rate FiO2 09/16/19 14:14 99.1 92 17 132/89 (103) 99 Room Air Sp02 EP Interpretation: reviewed, normal General Appearance: no apparent distress, alert, GCS 15, non-toxic Head: normocephalic, atraumatic Eyes: bilateral eye normal inspection, bilateral eye PERRL ENT: hearing grossly normal, normal pharynx, no angioedema, normal voice Neck: no meningismus, no bony tend, no carotid bruits, supple/symm/no masses Respiratory: chest non-tender, lungs clear, normal breath sounds, no rhonchi, no wheezing, speaking full sentences Cardiovascular #1: regular rate, rhythm, no edema, no murmur Gastrointestinal: non tender, soft Genitourinary: no CVA tenderness Neurologic: alert, oriented Psychiatric: normal inspection, judgement/insight normal Skin: no rash Lymphatic: no adenopathy Medical Decision Making PA Attestation All my diagnosis and treatment plans were reviewed ad discussed with my supervising physician Dr. Carnes Diagnostic Impression: Primary Impression: Cervical radiculopathy Additional Impression: Cervical disc disease ER Course 39-year-old male with no segment past medical history here complaining of right- sided neck pain radiating to right shoulder x1 month. Patient reports that 1 month ago he fell and hit his right side of face and neck however did not seek any imaging. Now complains of tingling sensation starting neck pain rating all the way to the arm. Rating pain 10 out of 10. Reports has been taking over-the -counter ibuprofen with minimal relief. Has difficulty with range of motion. Denies fever and chills, headache and dizziness at this time. No signs of meningismus is noted. Denies chest pain, shortness of breath, palpitation, headache and dizziness no other associated symptoms. Ddx considered but are not limited to : Cervical sprain versus strain versus radiculopathy versus disc disease versus fracture Vital signs: are WNL, pt. is afebrile H&PE are most consistent with: Cervical radiculopathy and disc disease ORDERS: C-spine x-ray, Tylenol, prednisone, Robaxin, lidocaine patch, no motion can be given as patient has gastritis ED INTERVENTIONS: Soft c-collar was applied, dexamethasone, Toradol, Robaxin and lidocaine patch DISCHARGE: At this time pt. is stable for d/c to home. Will provide printed patient care instructions, and any necessary prescriptions. Care plan and follow up instructions have been discussed with the patient prior to discharge. At this time patient is having chronic pain with tingling sensation on the arm and needs MRI. Follow-up with primary care provider and records specialist. If worsening symptoms return to emergency room. Other X-Ray Diagnostic Results Other X-Ray Diagnostic Results : X-Ray ordered: C-spine # of Views/Limited Vs Complete: 3 View Indication: Pain EP Interpretation: Yes PA Xray: Interpretation reviewed, by supervising MD, and agrees with findings. Interpretation: no dislocation, no soft tissue swelling, no fractures Impression: No acute disease Electronically Signed by: Seven Sloan PA-C Last Vital Signs Date Time Temp Pulse Resp B/P (MAP) Pulse Ox O2 Delivery O2 Flow Rate FiO2 09/16/19 14:22 99.1 89 17 132/89 99 Room Air Disposition: HOME, SELF-CARE Condition: Stable Scripts Prednisone* (PREDNISONE*) 20 Mg Tablet 40 MG ORAL DAILY for 5 Days, #10 TAB Prov: Seven Hernandez 09/16/19 Lidocaine Patch* (Lidoderm Patch*) 1 Each Adh..patch 1 PATCH TOPIC DAILY, #30 PATCH Patch(es) may remain in place for up to 12 hours in any 24-hour period. Prov: Seven Hernandez 09/16/19 Acetaminophen* (TYLENOL EXTRA STRENGTH*) 500 Mg Tablet 2 TAB ORAL Q6H PRN for Mild Pain/Temp > 100.5, #30 TAB 0 Refills Prov: Seven Hernandez 09/16/19 Methocarbamol* (ROBAXIN-750*) 750 Mg Tablet 750 MG PO QID, #28 TAB 0 Refills Prov: Seven Hernandez 09/16/19 Referrals: NON PHYSICIAN (PCP) Patient Instructions: Cervical Radiculopathy Additional Instructions: Follow-up with your primary care provider for MRI of neck, keep soft collar on, take medication as directed, at this time it is almost 1 month past your symptoms is considered chronic pain you do need MRI due to tingling sensation starting in your neck and radiating to your right arm. Follow-up with your primary care provider for referral to a specialist, you need to see records specialist as well as physical therapy. If worsening symptoms return to the emergency room Seven Hernandez Sep 16, 2019 15:30
[2019-09-16] MEDS ORDERED: TYLENOL EXTRA500 MG ORAL (15:34)
[2019-09-16] MEDS ORDERED: LIDODERM700 M1 TOPIC (15:34)
[2019-09-16] MEDS ORDERED: PREDNISONE20 MG ORAL (15:34)
[2019-09-16] MEDS ORDERED: ROBAXIN-750750 MG PO (15:34)
--- NOTE | 2019-09-16 15:34 | Diagnostic Imaging Report ---
Indication: Pain, status post trauma Technique: 3 views of the cervical spine Comparison: none Findings: No prevertebral soft tissue swelling. No acute fractures. No dislocations. There are degenerative proliferative changes noted. Impression: No acute bony trauma Degenerative changes
[2019-09-16 15:45] VITALS: BP 132/89
--- NOTE | 2019-09-16 15:45 | NUR ---
ER DISCHARGE NOTE: Patient is cleared to be discharged per ERMD, pt is aox4, on room air, with stable vital signs. pt was given dc and prescription instructions, pt was able to verbalize understanding, pt is able to ambulate with steady gait. pt took all belongings.
== END 2019-09-16 15:45 | disposition home or self-care (01) ==
LOC: EMR 14:40
DX: M50.10 Cervical disc disorder with radiculopathy, unspecified cervical region (principal); K21.9 Gastro-esophageal reflux disease without esophagitis; Z91.81 History of falling
CPT/HCPCS: 72040; 96372; 96374; 99284; J1100; J1885